=== PATIENT | female | born 1995 | race Caucasian/White ===

== ENCOUNTER 2016-05-20 23:33 | Emergency (ER) | payer SELFPAY ==
[~2016-05-20] VITALS: Ht 154.9 cm; Wt 70.0 kg
[~2016-05-20 23:33] MED LIST: AMOXICILLIN500 MG PO; ATHENOL325 MG PO; AUGMENTIN875 MG PO; BENADRYL25 MG PO; BENTYL10 MG PO; CATAPRES0.1 MG PO; CIPRO500 MG PO; DEPO-PROVER150 MG/ML IM; ENDOCET 5-3251 EACH PO; IBUPROFEN800 MG PO; INTUNIV3 MG; KEFLEX500 MG PO; MOTRIN600 MG PO; Natalcare Rx,Pramile PO; TESSALON PERLE100 MG PO; TYLENOL REGULA325 MG PO; VYVANSE70 MG; ZOFRAN ODT4 MG PO; ZOFRAN4 MG PO
[2016-05-20 23:57] LABS: HEMATOCRIT 39.3 % (36.0-46.0); MCH 28.9 PG (29.0-34.0); MCHC 33.6 G/DL (30.0-36.0); MEAN PLAT.VOLUME 9.6 uM^3 (9.5-12.4); PLATELET COUNT 319 K/uL (156-360); RBC DIS.WIDTH-CV 12.4 % (11.8-14.6); RBC DIS.WIDTH-SD 38.7 % (39-53); RED BLOOD COUNT 4.57 M/uL (3.80-5.20); WHITE BLOOD COUNT 11.1 K/uL (4.1-10.2)
[2016-05-21 00:15] LABS: ADD MIUA? YES; BILIRUBIN NEGATIVE; BLOOD LARGE; COLOR YELLOW ((YELLOW)); GLUCOSE (STRIP) NEGATIVE; KETONES NEGATIVE; LEUKOCYTES SMALL; NITRITE NEGATIVE; PROTEIN (STRIP) 100; SPECIFIC GRAVITY 1.018 (1.000-1.030); UROBILINOGEN 0.2 MG/DL (0.2-1.0)
[2016-05-21 00:47] LABS: BACTERIA RARE /HPF; CASTS NONE SEEN /LPF; CRYSTALS NONE SEEN; EPITHELIAL CELLS RARE /HPF; MUCUS NONE SEEN /LPF; RED BLOOD CELLS TNTC /HPF (0-5); UCUL ADDED? NO
[2016-05-21 03:12] VITALS: BP 121/72
== END 2016-05-21 03:13 | disposition home or self-care (01) ==
LOC: EXP 23:33 → EME 23:33 → EXP 05-21 03:13
DX: O03.4 Incomplete spontaneous abortion without complication (principal); O99.331 Smoking (tobacco) complicating pregnancy, first trimester; F17.200 Nicotine dependence, unspecified, uncomplicated; Z3A.01 Less than 8 weeks gestation of pregnancy
CPT/HCPCS: 76801; 81003; 84702; 85027; 99281; 99283

== ENCOUNTER 2016-05-23 20:56 | Emergency (ER) | payer SELFPAY ==
[~2016-05-23] VITALS: Ht 154.9 cm; Wt 69.5 kg
[2016-05-23 21:26] LABS: BASOPHIL COUNT 0.1 K/uL (0-0.1); EOSINOPHIL COUNT 0.2 K/uL (0-0.3); IMMATURE GRANULOCYTE (%) 0.3 % (0.0-0.7); LYMPHOCYTE COUNT 2.7 K/uL (1.0-2.8); MCH 29.1 PG (29.0-34.0); MCHC 33.9 G/DL (30.0-36.0); MCV 85.8 FL (83-99); MEAN PLAT.VOLUME 9.4 uM^3 (9.5-12.4); MONOCYTE (%) 6.8 % (3-12); MONOCYTE COUNT 0.7 K/uL (0-0.8); NEUTROPHIL (%) 64.8 % (45-76); PLATELET COUNT 356 K/uL (156-360); RBC DIS.WIDTH-CV 12.6 % (11.8-14.6); RBC DIS.WIDTH-SD 39.2 % (39-53); RED BLOOD COUNT 4.78 M/uL (3.80-5.20); WHITE BLOOD COUNT 10.7 K/uL (4.1-10.2)
[2016-05-23 21:34] LABS: CHLORIDE 109 mEq/L (99-109); POTASSIUM 4.1 mEq/L (3.7-5.4); SODIUM 142 mEq/L (136-147)
[2016-05-23 21:35] LABS: GLUCOSE 112 mg/dL (70-99)
[2016-05-23 21:37] LABS: ANION GAP 10 MEQ/L (2-14)
[2016-05-23 21:39] LABS: GFR ESTIMATE (CALCULATED) > 59 mL/min/
[2016-05-23 21:40] LABS: UREA NITROGEN (BUN) 8 mg/dL (9-23)
[2016-05-23 21:51] LABS: QUANTITATIVE HCG 413.8 MIU/ML
[2016-05-23 23:41] VITALS: BP 126/82
== END 2016-05-23 23:42 | disposition home or self-care (01) ==
LOC: EME 20:56
PROVIDERS: Emergency Medicine
DX: O03.9 Complete or unspecified spontaneous abortion without complication (principal); F17.200 Nicotine dependence, unspecified, uncomplicated
CPT/HCPCS: 76801; 80048; 84702; 85025; 86900; 86901; 99281; 99284

== ENCOUNTER 2016-11-01 22:40 | Emergency (ER) | payer SELFPAY ==
[~2016-11-01] VITALS: Ht 154.9 cm; Wt 72.0 kg
[2016-11-02] MEDS ORDERED: PHENERGAN-CODE120 ML PO (00:57)
[2016-11-02] MEDS ORDERED: AMOXICILLIN500 M1 PO (00:57)
[2016-11-02 01:02] VITALS: BP 121/74
== END 2016-11-02 01:26 | disposition home or self-care (01) ==
LOC: EME 22:40
DX: J03.90 Acute tonsillitis, unspecified (principal); R05 Cough; R11.2 Nausea with vomiting, unspecified; F17.200 Nicotine dependence, unspecified, uncomplicated
CPT/HCPCS: 99281; 99283

== ENCOUNTER 2016-11-18 01:29 | Emergency (ER) | payer SELFPAY ==
[~2016-11-18] VITALS: Ht 154.9 cm; Wt 73.0 kg
[~2016-11-18 01:29] MED LIST changes: +AMOXICILLIN500 M1 PO; +PHENERGAN-CODE120 ML PO
[2016-11-18] MEDS ORDERED: ROBITUSSIN AC,T10 ML PO (02:32)
[2016-11-18] MEDS ORDERED: ZITHROMAX Z-PA250 MG PO (02:32)
[2016-11-18 02:41] VITALS: BP 122/75
== END 2016-11-18 02:41 | disposition home or self-care (01) ==
LOC: EME 01:29
DX: J02.9 Acute pharyngitis, unspecified (principal); F17.200 Nicotine dependence, unspecified, uncomplicated; Z71.6 Tobacco abuse counseling
CPT/HCPCS: 99281; 99284

== ENCOUNTER 2016-12-02 06:50 | Emergency (ER) | payer SELFPAY ==
[~2016-12-02] VITALS: Ht 154.9 cm; Wt 78.2 kg
[~2016-12-02 06:50] MED LIST changes: +ROBITUSSIN AC,T10 ML PO; +ZITHROMAX Z-PA250 MG PO
[2016-12-02 07:28] LABS: ADD MIUA? YES; BILIRUBIN NEGATIVE; BLOOD NEGATIVE; COLOR YELLOW ((YELLOW)); GLUCOSE (STRIP) NEGATIVE; KETONES NEGATIVE; LEUKOCYTES LARGE; NITRITE NEGATIVE; PROTEIN (STRIP) NEGATIVE; SPECIFIC GRAVITY 1.018 (1.000-1.030); UROBILINOGEN 0.2 MG/DL (0.2-1.0)
[2016-12-02 07:33] LABS: INTERNAL CONTROL VALID? YES
[2016-12-02 07:40] LABS: EPITHELIAL CELLS 2+ /HPF; RED BLOOD CELLS 0-5 /HPF (0-5); WHITE BLOOD CELLS 20-30 /HPF (0-5)
[2016-12-02 07:41] LABS: BACTERIA 2+ /HPF; CASTS NONE SEEN /LPF; CRYSTALS NONE SEEN; MUCUS NONE SEEN /LPF; UCUL ADDED? YES
[2016-12-02 08:12] LABS: HEMATOCRIT 34.7 % (36.0-46.0); MCH 30.1 PG (29.0-34.0); MCHC 34.3 G/DL (30.0-36.0); MCV 87.6 FL (83-99); MEAN PLAT.VOLUME 9.5 uM^3 (9.5-12.4); PLATELET COUNT 207 K/uL (156-360); RBC DIS.WIDTH-CV 11.7 % (11.8-14.6); RBC DIS.WIDTH-SD 37.9 % (39-53); RED BLOOD COUNT 3.96 M/uL (3.80-5.20); WHITE BLOOD COUNT 7.4 K/uL (4.1-10.2)
[2016-12-02 08:23] LABS: CHLORIDE 106 mEq/L (99-109); POTASSIUM 3.5 mEq/L (3.7-5.4); SODIUM 137 mEq/L (136-147)
[2016-12-02 08:25] LABS: GLUCOSE 88 mg/dL (70-99)
[2016-12-02 08:27] LABS: ANION GAP 7 MEQ/L (2-14); TOTAL BILIRUBIN 0.4 mg/dL (0.0-1.0)
[2016-12-02 08:29] LABS: ALKALINE PHOSPHATASE 76 IU/L (3-129); GFR ESTIMATE (CALCULATED) > 59 mL/min/
[2016-12-02 08:30] LABS: UREA NITROGEN (BUN) 10 mg/dL (9-23)
[2016-12-02] MEDS ORDERED: NAPROSYN500 MG PO (09:49)
[2016-12-02] MEDS ORDERED: MACROBID100 MG PO (09:49)
[2016-12-02] MEDS ORDERED: GUAIFENESIN600 M1 PO (09:49)
[2016-12-02 10:02] VITALS: BP 98/60
== END 2016-12-02 10:13 | disposition home or self-care (01) ==
LOC: EME → EDBD 06:50 → EME 10:13
PROVIDERS: Nurse Practitioner Family
DX: N39.0 Urinary tract infection, site not specified (principal); J06.9 Acute upper respiratory infection, unspecified; R52 Pain, unspecified; F17.200 Nicotine dependence, unspecified, uncomplicated
CPT/HCPCS: 71020; 80053; 81003; 84703; 85027; 87086; 87651 90; 99281; 99285; J1885; J2405

== ENCOUNTER 2017-03-30 19:14 | Emergency (ER) | payer SELFPAY ==
[~2017-03-30] VITALS: Ht 154.9 cm; Wt 72.1 kg
[~2017-03-30 19:14] MED LIST changes: +GUAIFENESIN600 M1 PO; +MACROBID100 MG PO; +NAPROSYN500 MG PO
[2017-03-30 20:30] LABS: HEMATOCRIT 41.1 % (36.0-46.0); HEMOGLOBIN 14.3 G/DL (11.9-15.5); MCH 30.7 PG (29.0-34.0); MCHC 34.8 G/DL (30.0-36.0); MCV 88.2 FL (83-99); PLATELET COUNT 299 K/uL (156-360); RBC DIS.WIDTH-SD 38.6 % (39-53); RED BLOOD COUNT 4.66 M/uL (3.80-5.20); WHITE BLOOD COUNT 10.9 K/uL (4.1-10.2)
[2017-03-30 20:41] LABS: APPEARANCE SL.HAZY ((CLEAR)); BILIRUBIN NEGATIVE; BLOOD NEGATIVE; COLOR YELLOW ((YELLOW)); GLUCOSE (STRIP) NEGATIVE; KETONES NEGATIVE; LEUKOCYTES SMALL; NITRITE NEGATIVE; PROTEIN (STRIP) NEGATIVE; SPECIFIC GRAVITY 1.021 (1.000-1.030); UROBILINOGEN 0.2 MG/DL (0.2-1.0)
[2017-03-30 21:07] LABS: CHLORIDE 102 MEQ/L (99-109); CREATININE 0.7 MG/DL (0.6-1.3); GFR ESTIMATE (CALCULATED) > 59 mL/min/; GLUCOSE 87 mg/dL (70-99); POTASSIUM 3.8 MEQ/L (3.7-5.4); SODIUM 135 MEQ/L (136-147); UREA NITROGEN (BUN) 16 mg/dL (9-23)
[2017-03-30 21:20] LABS: BACTERIA RARE /HPF; EPITHELIAL CELLS 1+ /HPF; MUCUS TRACE /LPF; RED BLOOD CELLS NONE SEEN /HPF (0-5); UCUL ADDED? NO; WHITE BLOOD CELLS 0-5 /HPF (0-5)
[2017-03-30 21:36] LABS: QUANTITATIVE HCG < 4.0 MIU/ML
[2017-03-30 22:24] VITALS: BP 137/87
== END 2017-03-30 22:26 | disposition home or self-care (01) ==
LOC: EME 19:14
PROVIDERS: Physician Assistant
DX: N91.2 Amenorrhea, unspecified (principal); F90.9 Attention-deficit hyperactivity disorder, unspecified type; F17.200 Nicotine dependence, unspecified, uncomplicated
CPT/HCPCS: 80048; 81003; 84702; 85027; 99281; 99283

== ENCOUNTER 2017-06-01 01:20 | Emergency (ER) | payer SELFPAY ==
[~2017-06-01] VITALS: Ht 154.9 cm; Wt 73.1 kg
[2017-06-01 03:13] VITALS: BP 113/68
== END 2017-06-01 03:13 | disposition home or self-care (01) ==
LOC: EME 01:20
DX: S50.11XA Contusion of right forearm, initial encounter (principal); W18.30XA Fall on same level, unspecified, initial encounter; F17.200 Nicotine dependence, unspecified, uncomplicated
CPT/HCPCS: 73090; 99281; 99284

== ENCOUNTER 2017-09-02 01:21 | Emergency (ER) | payer SELFPAY ==
[~2017-09-02] VITALS: Ht 154.9 cm; Wt 72.7 kg
[2017-09-02 02:47] VITALS: BP 132/81
== END 2017-09-02 02:48 | disposition home or self-care (01) ==
LOC: EME 01:21
DX: F43.9 Reaction to severe stress, unspecified (principal); F90.9 Attention-deficit hyperactivity disorder, unspecified type; F17.200 Nicotine dependence, unspecified, uncomplicated
CPT/HCPCS: 99281; 99284